=== PATIENT | female | born 1945 | race Caucasian/White ===

== ENCOUNTER → 2017-02-18 | Outpatient (CLI) | payer MEDICARE ==
[~2017-02-18] MED LIST: COZAAR100 MG PO; LEVOCETIRIZINE D5 MG PO; LOPRESSOR50 MG PO; MAGNESIUM100 MG PO; MECLIZINE HCL25 MG PO; PLAQUENIL 200200 MG PO; PROTONIX 40 MG40 M1 PO; TYLENOL W/CODEIN1 E1 PO; VALIUM 5 MG TAB5 MG PO; VITAMIN B-121000 MCG PO; VITAMIN C 500500 MG PO; VITAMIN D 11000 UNIT PO; ZANAFLEX2 MG PO
== END ==
LOC: RAD 11:26
DX: I27.2 Other secondary pulmonary hypertension (principal)
CPT/HCPCS: 71020

== ENCOUNTER 2017-03-22 14:29 | Inpatient (IN) | payer MEDICARE ==
[~2017-03-22] VITALS: Ht 171.4 cm; Wt 97.5 kg
[2017-03-22] MEDS ORDERED: TYLENOL W/CODEIN1 E1 PO (16:45)
[2017-03-22] MEDS ORDERED: PROTONIX 40 MG40 M1 PO (16:45)
[2017-03-22] MEDS ORDERED: LEVOCETIRIZINE D5 MG PO (16:46)
[2017-03-22] MEDS ORDERED: COZAAR100 MG PO (16:47)
[2017-03-22] MEDS ORDERED: LOPRESSOR50 MG PO (16:47)
[2017-03-22] MEDS ORDERED: PLAQUENIL 200200 MG PO (16:48)
[2017-03-22] MEDS ORDERED: ZANAFLEX2 MG PO (16:49)
[2017-03-22] MEDS ORDERED: MECLIZINE HCL25 MG PO (16:50)
[2017-03-22] MEDS ORDERED: VALIUM 5 MG TAB5 MG PO (16:51)
[2017-03-22] MEDS ORDERED: VITAMIN C 500500 MG PO (16:52)
[2017-03-22] MEDS ORDERED: VITAMIN B-121000 MCG PO (16:53)
[2017-03-22] MEDS ORDERED: VITAMIN D 11000 UNIT PO (16:54)
[2017-03-22] MEDS ORDERED: MAGNESIUM100 MG PO (16:55)
[2017-03-22 17:34] LABS: HEMOGLOBIN 11.4 gm/dl (12.3-15.3); RED BLOOD COUNT 3.61 M/UL (4.00-5.10)
[2017-03-25 04:46] LABS: HEMOGLOBIN 9.9 gm/dl (12.3-15.3); RED BLOOD COUNT 3.11 M/UL (4.00-5.10); WHITE BLOOD COUNT 5.7 K/UL (4.5-11.0)
[2017-03-25 05:09] LABS: BUN/CREATININE RATIO 17 (0-10)
[2017-03-27 06:30] LABS: HEMOGLOBIN 9.8 gm/dl (12.3-15.3); RED BLOOD COUNT 3.08 M/UL (4.00-5.10); WHITE BLOOD COUNT 5.8 K/UL (4.5-11.0)
[2017-03-27 06:45] LABS: BUN/CREATININE RATIO 20 (0-10)
[2017-03-29 04:55] LABS: RED BLOOD COUNT 3.23 M/UL (4.00-5.10); WHITE BLOOD COUNT 6.3 K/UL (4.5-11.0)
[2017-03-29 04:59] LABS: BUN/CREATININE RATIO 23 (0-10)
[2017-03-30 06:42] LABS: HEMOGLOBIN 10.2 gm/dl (12.3-15.3); RED BLOOD COUNT 3.25 M/UL (4.00-5.10); WHITE BLOOD COUNT 5.9 K/UL (4.5-11.0)
[2017-03-30 06:43] LABS: BUN/CREATININE RATIO 20 (0-10)
== END 2017-03-30 15:00 | disposition home or self-care (01) | DRG 690 ==
LOC: MED SURG 4 14:29
PROVIDERS: Internal Medicine; ADMIT Hospitalist
DX: N30.00 Acute cystitis without hematuria (principal); K52.1 Toxic gastroenteritis and colitis; B96.20 Unspecified Escherichia coli [E. coli] as the cause of diseases classified elsewhere; Z16.39 Resistance to other specified antimicrobial drug; K90.0 Celiac disease; T36.8X5A Adverse effect of other systemic antibiotics, initial encounter; Y92.009 Unspecified place in unspecified non-institutional (private) residence as the place of occurrence of the external cause; I10 Essential (primary) hypertension; D64.9 Anemia, unspecified; K21.9 Gastro-esophageal reflux disease without esophagitis; M19.90 Unspecified osteoarthritis, unspecified site; Z87.440 Personal history of urinary (tract) infections; M79.7 Fibromyalgia; R10.13 Epigastric pain; Z79.891 Long term (current) use of opiate analgesic; Z79.899 Other long term (current) drug therapy
CPT/HCPCS: 36415; 80048; 80053; 81001; 82728; 83540; 83550; 84436; 84443; 84480; 85025; 85027; 87040; 87077; 87086; 87186; J0696; J1650; J7030; J7050

== ENCOUNTER → 2022-08-09 | Outpatient (CLI) | payer MEDICARE | LOC: ECHO 11:15 | DX: R06.09 Other forms of dyspnea (principal); I35.1 Nonrheumatic aortic (valve) insufficiency | CPT/HCPCS: ECHO; 93306 ==